=== PATIENT | female | born 1985 ===

== ENCOUNTER 2019-04-19 03:50 | Emergency (ER) | payer SELFPAY ==
[~2019-04-19] VITALS: Ht 162.6 cm; Wt 74.0 kg
[~2019-04-19 03:50] MED LIST: IBREN600 MG PO; PERCOCET 325 MG1 TA2 PO; SENOKOT S 50 MG1 TAB PO
[2019-04-19 03:57] VITALS: TEMP 97.1
[2019-04-19 04:31] LABS: BASO # 0.1 (0.0-0.2); BASO % 0.4 % (0.0-2.0); EOS # 0.1 (0.0-0.7); EOS % 0.3 % (0-4.0); GRAN # 15.6 (1.4-6.5); GRAN % 82.6 % (42.2-75.2); HEMATOCRIT 43.6 % (37.0-47.0); HEMOGLOBIN 15.5 g/dl (12.5-16.0); LYMPH % 10.4 % (20.0-51.0); MEAN CELL VOLUME 86 fl (80.0-100.0); MEAN CORPUSCULAR HEMOGLOBIN 31 pg (27.0-31.0); MEAN CORPUSCULAR HGB CONC 36 g/dl (33.0-37.0); MEAN PLATELET VOLUME 11.3 fl (7.4-10.4); MONO # 1.1 (0.1-0.6); MONO % 5.7 % (1.7-9.3); PLATELET COUNT 279 K/mm3 (130-400); RED BLOOD COUNT 5.09 M/mm3 (4.10-5.30); REDCELL DISTRIBUTION WIDTH-CV 12.9 % (11.5-14.5)
[2019-04-19] MEDS ORDERED: GLUCOPHAGE500 MG/TAB PO (04:39)
[2019-04-19 04:40] LABS: ALBUMIN 4.3 gm/dL (3.5-5.0); BILIRUBIN,TOTAL 1.1 mg/dL (0.0-1.0); CALCIUM 9.7 mg/dL (8.4-10.2); CREATININE, serum 0.52 (0.52-1.25); POTASSIUM 3.5 mmol/L (3.4-5.0)
[2019-04-19 06:41] LABS: COLLECTION METHOD CLEAN CATCH
[2019-04-19 06:46] LABS: MUCOUS Present /lpf; PH 6 (5-8); URINE APPEARANCE Clear; URINE BACTERIA None Seen /hpf; URINE BILIRUBIN Negative (NEGATIVE); URINE BLOOD Negative (NEGATIVE); URINE COLOR Yellow; URINE GLUCOSE Negative (NEGATIVE); URINE KETONE Negative (NEGATIVE); URINE LEUKOCYTE ESTERASE Negative (NEGATIVE); URINE NITRATE Negative (NEGATIVE); URINE PROTEIN(semi-quant) Negative (NEGATIVE); URINE RBC 0-2 /hpf; URINE UROBILINOGEN Negative (NEGATIVE)
[2019-04-19 07:15] VITALS: BP 100/62; PULSE 93
== END 2019-04-19 07:15 | disposition home or self-care (01) ==
LOC: COL.ER 03:50
PROVIDERS: Emergency Medicine
DX: K52.9 Noninfective gastroenteritis and colitis, unspecified (principal); Z79.84 Long term (current) use of oral hypoglycemic drugs
CPT/HCPCS: J2765; J3010; J7030; Q9967